=== PATIENT | female | born 1960 | race Two or more races ===

== ENCOUNTER 2024-07-09 11:17 | Inpatient (IN) | payer MEDICAID, OTHER ==
[~2024-07-09] VITALS: Ht 154.9 cm; Wt 99.0 kg
--- NOTE | 2024-07-09 11:38 | ED.PDOC ---
Musculoskeletal HPI Comments 63 y/o F, BIBA, with PMHx of hyperthyroidism, HTN, and DM presents to the ED for CC of s/p fall. EMS reports, patient is coming from home where she suffered a fall off a chair following nailing a object into the wall. EMS states, patient reportedly felt dizzy and decided to step down from the chair, twisting her right ankle and breaking her fall with her right wrist. Following trauma patient complains of head pain, right wrist and right ankle pain. In route, to the ED patient was given Tylenol IV; reports current 6/10 pain. Patient denies LOC, head injury, open abrasions, nausea, or vomiting. No other symptoms or modifying factors present at this time. Chief Complaint: Fall Injury Time Seen by MD: 11:20 Reviewed Notes: Nurses Notes, Medications, Allergies Allergies: Coded Allergies: NO KNOWN ALLERGIES (Unverified , 07/09/24) Home Meds Reported Medications Levothyroxine Sodium (Levothyroxine Sodium) 25 Mcg Tab, 25 MCG PO QAM, MCG 07/09/24 Atorvastatin Calcium (Lipitor) 40 Mg Tab, 40 MG PO, TAB 07/09/24 Semaglutide (Ozempic) 2 Mg/3 Ml Inj, 2 MG SC, INJ 07/09/24 Information Source: Patient, Emergency Med Personnel Mode of Arrival: EMS Location: Right Extremity Location: Ankle, Wrist Timing: Minutes Prehospital treatment: Other (tylenol) Severity: Moderate Able to Move Extremity: Yes Bear Weight: Limited Pain: Moderate Mechanism: None Circumstances: Fall Onset of Symptoms: After Trauma Symptoms: Swelling, Pain DVT Risk Factors: NONE Last Tetanus: Unknown Associated signs and symptoms: Wrist pain, Ankle pain Past Medical History PAST MEDICAL HISTORY: Denies Surgical History: Denies all surgeries COATER SLATE History: Denies all COATER SLATE Hx Family History Family History: Unknown Social History Smoker: Non-Smoker Alcohol: Occasionally Drugs: Denies Drug Use Lives In: Home Constitutional: denies: chills, diaphoresis, fatigue, fever, malaise, sweats, weakness, others EENTM: denies: blurred vision, double vision, ear bleeding, ear discharge, ear drainage, ear pain, ear ringing, eye pain, eye redness, hearing loss, mouth pain, mouth swelling, nasal discharge, nose bleeding, nose congestion, nose pain, photophobia, tearing, throat pain, throat swelling, voice changes, others Respiratory: denies: cough, hemoptysis, orthopnea, SOB at rest, shortness of breath, SOB with excertion, stridor, wheezing, others Cardiovascular: denies: chest pain, dizzy spells, diaphoresis, Dyspnea on exertion, edema, irregular heart beat, left arm pain, lightheadedness, palpitations, PND, syncope, others Gastrointestinal: denies: abdomen distended, abdominal pain, blood streaked bowels, constipated, diarrhea, dysphagia, difficulty swallowing, hematemesis, melena, nausea, poor appetite, poor fluid intake, rectal bleeding, rectal pain, vomiting, others Genitourinary: denies: abnormal vagina bleeding, burning, dyspareunia, dysuria, flank pain, frequency, hematuria, incontinence, pain, , vagina discharge, urgency, others Neurological: reports: dizziness, headache; denies: fainting, left sided numbness, left sided weakness, numbness, paresthesia, pre-existing deficit, right sided numbness, right sided weakness, seizure, speech problems, tingling, tremors, weakness, others Musculoskeletal: reports: others (right wrist pain, right ankle pain); denies: back pain, gout, joint pain, joint swelling, muscle pain, muscle stiffness, neck pain Integumetry: denies: bruises, change in color, change in hair/nails, dryness, laceration, lesions, lumps, rash, wounds, others Allergic/Immunocompromised: denies: Difficulty Healing, Frequent Infections, Hives, Itching, others Hematologic/Lymphatic: denies: anemia, blood clots, easy bleeding, easy bruising, swollen glands, others Endocrine: denies: excessive hunger, excessive sweating, excessive thirst, excessive urination, flushing, intolerance to cold, intolerance to heat, unexplained weight gain, unexplained weight loss, others Psychiatric: denies: anxiety, bipolar disorder, depression, hopeless, panic d isorder, schizophrenia, sleepless, suicidal, others All Other Systems: Reviewed and Negative Physical Exam General Appearance: No Apparent Distress, Normal HEENT: Normal ENT Inspection, Pharynx Normal, TMs Normal Neck: Full Range of Motion, Non-Tender, Normal, Normal Inspection Respiratory: Chest Non-Tender, Lungs Clear, No Accessory Muscle Use, No Respiratory Distress, Normal Breath Sounds Cardiovascular: No Edema, No JVD, No Murmur, No Gallop, Normal Peripheral Pulses, Regular Rate/Rhythm Breast Exam: Deferred Gastrointestinal: No Organomegaly, Non Tender, No Pulsatile Mass, Normal Bowel Sounds, Soft Genitalia: Deferred Pelvic: Deferred Rectal: Deferred Extremities: No calf tenderness, Normal capillary refill, Normal range of motion, No pedal edema Musculoskeletal : Location: Right Extremity Location: Ankle, Wrist Apperance: Swelling, Tenderness Neurologic: Alert, supervisor orchard II-XII nml as Tested, No Motor Deficits, Normal Affect, Normal Mood, No Sensory Deficits Cerebellar Function: Normal Reflexes: Normal Skin: Dry, Normal Color, Warm Lymphatic: No Adenopathy Was a procedure done? Was a procedure done?: Yes Sedation Sedation?: No Informed consent obtained: Yes Other Procedure Procedure right short arm volar splint and right posterior short leg/ stirrup splint well placed, intact neurovascular functions Differential Diagnosis EXT Differential Diagnosis: Fracture, Sprain, Dislocation, Myocardial Infarction, Contusion, Strain, Neurovascular injury, Other (vasovagal syncope, shaw marcum syncope/near syncope, electrolyte disorders, hypoglycemia, hypotensions) X-Ray, Labs, Meds, VS Vital Signs Date Time Temp Pulse Resp B/P (MAP) Pulse Ox O2 Delivery O2 Flow Rate FiO2 07/09/24 13:53 97.9 73 18 148/79 (102) 100 97.9 07/09/24 13:53 73 18 100 Room Air 07/09/24 11:28 98.2 73 18 120/83 (95) 97 98.2 Lab Test 07/09/24 12:40 07/09/24 11:37 Range/Units Troponin I High Sensitivity < 3 L < 3 L </=34 ng/L White Blood Count 4.6 4.4-10.8 10^3/uL Red Blood Count 5.16 4.0-5.20 10^6/uL Hemoglobin 14.6 12.2-16.2 g/dL Hematocrit 43.6 36.0-46.0 % Mean Corpuscular Volume 84.7 80.0-100.0 fL Mean Corpuscular Hemoglobin 28.3 28.0-32.0 pg Mean Corpuscular Hemoglobin Concent 33.4 32.0-36.0 g/dL Red Cell Distribution Width 15.2 H 11.8-14.3 % Platelet Count 176 140-450 10^3/uL Mean Platelet Volume 8.0 6.9-10.8 fL Neutrophils (%) (Auto) 62.4 37.0-80.0 % Lymphocytes (%) (Auto) 27.1 10.0-50.0 % Monocytes (%) (Auto) 8.5 0.0-12.0 % Eosinophils (%) (Auto) 1.7 0.0-7.0 % Basophils (%) (Auto) 0.3 0.0-2.0 % Neutrophils # (Auto) 2.9 1.6-8.6 10 ^3/uL Lymphocytes # (Auto) 1.3 0.4-5.4 10 ^3/uL Monocytes # (Auto) 0.4 0-1.3 10 ^3/uL Eosinophils # (Auto) 0.1 0-0.8 10 ^3/uL Basophils # (Auto) 0 0-0.2 10 ^3/uL Nucleated Red Blood Cells 0.2 % Sodium Level 142 136-145 mmol/L Potassium Level 4.1 3.5-5.1 mmol/L Chloride Level 105 98-107 mmol/L Carbon Dioxide Level 30 20-31 mmol/L Anion Gap 7 5-15 Blood Urea Nitrogen 19 9-23 mg/dL Creatinine 0.63 0.550-1.02 mg/dL Glomerular Filtration Rate Calc 100 >90 mL/min BUN/Creatinine Ratio 30.2 H 10.0-20.0 Serum Glucose 125 H 74-106 mg/dL Calcium Level 8.7 8.7-10.4 mg/dL Current Medications Medications (Trade) Dose Ordered Sig/Esmer Route Start Time Stop Time Status Last Admin Acetaminophen/ Hydrocodone Bitart ([place] 5/325MG Tab) 1 tab ONCE ONCE PO 07/09/24 11:30 07/09/24 11:33 DC 07/09/24 13:53 [place] [address] Ph: [phone] DIAGNOSTIC IMAGING Diagnostic Imaging Report : [id number] Signed PATIENT: IMAN LIANG ACCT: [id number] UNIT: [id number] : 1960 LOC: ER ROOM / BED: / AGE / SEX: 63 / F ADM STATUS: REG ER SERVICE 1137 ORDERING PHYSICIAN: CANDIS CRAVEN MD PROCEDURE(s): RWRI2 - R WRIST 2 VIEW XRAY REASON: injury ORDER NUMBER(s): [id number], ACCESSION NUMBER(s): [id number] XY R WRIST 2 VIEW XRAY, INDICATION: injury TECHNICAL DATA: Frontal and lateral views were obtained of the right wrist. COMPARISON: None FINDINGS: Comminuted and displaced fracture of the distal radius and ulna. Joint spaces are maintained. Alignment is anatomic. Ulnar variance is positive. Soft tissues are within normal limits. IMPRESSION: Comminuted and displaced fracture of the distal radius and ulna. ATED BY: GILBERTO RECINOS MD DICTATED DATE/TIME: 07/09/241244 SIGNED BY: GILBERTO RECINOS MD SIGNED DATE/TIME: 07/09/241244 CC: [place] [address] Ph: [phone] DIAGNOSTIC IMAGING Diagnostic Imaging Report : [id number] Signed PATIENT: IMAN LIANG ACCT: [id number] UNIT: [id number] : 1960 LOC: ER ROOM / BED: / AGE / SEX: 63 / F ADM STATUS: REG ER SERVICE 1137 ORDERING PHYSICIAN: CANDIS CRAVEN MD PROCEDURE(s): RANKL - R ANKLE 3 VIEW REASON: injury ORDER NUMBER(s): [id number], ACCESSION NUMBER(s): [id number] PROCEDURE: Right ankle radiographs. INDICATION: Injury. TECHNIQUE: 3 views of the right ankle were obtained. COMPARISON: None FINDINGS: There is fracture of the distal fibula and medial malleolus. The ankle mortise is not widened. There soft tissue swelling in the ankle. IMPRESSION: 1. Fracture of the distal fibula and medial malleolus. 2. Soft tissue swelling of the ankle. ATED BY: MITCHELL ESCUDERO MD DICTATED DATE/TIME: 07/09/244 SIGNED BY: MITCHELL ESCUDERO MD SIGNED DATE/TIME: 07/09/24 122 CC: [place] [id number] Ph: [phone] DIAGNOSTIC IMAGING Diagnostic Imaging Report : [id number] Signed PATIENT: IMAN LIANG ACCT: [id number] UNIT: [id number] : 1960 LOC: ER ROOM / BED: / AGE / SEX: 63 / F ADM STATUS: REG ER SERVICE 113 ORDERING PHYSICIAN: CANDIS CRAVEN MD PROCEDURE(s): RTBFB - R TIB FIB XRAY REASON: injury ORDER NUMBER(s): [id number], ACCESSION NUMBER(s): [id number] PROCEDURE: Right tibia/ fibula radiographs. INDICATION: injury TECHNIQUE: 2 views of the right tibia/ fibula were obtained. COMPARISON: None FINDINGS: There is an acute fracture of the distal fibula. Acute fracture of the posterior and medial malleolus. The ankle mortise is not widened. Soft tissue swelling in the ankle. IMPRESSION: 1. Acute trimalleolar fracture. No dislocation. ATED BY: MITCHELL ESCUDERO MD DICTATED DATE/TIME: 07/09/241224 SIGNED BY: MITCHELL ESCUDERO MD SIGNED DATE/TIME: 07/09/241224 CC: [place] [address] Ph: [phone] DIAGNOSTIC IMAGING Diagnostic Imaging Report : [id number] Signed PATIENT: IMAN LIANG ACCT: [id number] UNIT: [id number] : 1960 LOC: ER ROOM / BED: / AGE / SEX: 63 / F ADM STATUS: REG ER SERVICE 1137 ORDERING PHYSICIAN: CANDIS CRAVEN MD PROCEDURE(s): RFOR - R FOREARM XRAY REASON: injury ORDER NUMBER(s): [id number], ACCESSION NUMBER(s): [id number] XY R FOREARM XRAY, INDICATION: injury TECHNICAL DATA: Frontal and lateral views were obtained of the left forearm. COMPARISON: None FINDINGS: Comminuted and displaced fracture of the distal radius and ulna. Soft tissues are normal. IMPRESSION: Comminuted and displaced fracture of the distal radius and ulna. ATED BY: GILBERTO RECINOS MD DICTATED DATE/TIME: 07/09/241244 SIGNED BY: GILBERTO RECINOS MD SIGNED DATE/TIME: 07/09/241244 CC: [place] [address] Ph: [phone] DIAGNOSTIC IMAGING Diagnostic Imaging Report : [id number] Signed PATIENT: IMAN LIANG ACCT: [id number] UNIT: [id number] : 1960 LOC: ER ROOM / BED: / AGE / SEX: 63 / F ADM STATUS: REG ER SERVICE 1134 ORDERING PHYSICIAN: CANDIS CRAVEN MD PROCEDURE(s): HWOCT - HEAD WITHOUT CONTRAST REASON: injury, near syncope ORDER NUMBER(s): [id number], ACCESSION NUMBER(s): [id number] EXAM: CT HEAD WITHOUT CONTRAST INDICATION: injury, near syncope TECHNIQUE: CT of the head without intravenous contrast. Radiation Dose : 1. Head: CT Dose: CTDI volume is 51.09 mGy. Dose-length product is 819.18 mGy*cm The dose indicators for CT are the volume Computed Tomography (CT) Dose Index (CTDIvol) and the Dose Length Product (DLP), and are measured in units of mGy and mGy-cm, respectively. These indicators are not patient dose, but values generated from the CT scanner acquisition factors. The report includes radiation exposure data for exposures received during this examination. COMPARISON: None FINDINGS: There is no evidence of acute intracranial hemorrhage, extra-axial collection, mass effect, midline shift, herniation or hydrocephalus. The ventricles, sulci and cisterns are age appropriate. The powell-white differentiation is intact. Patchy periventricular and subcortical white matter hypoattenuation is nonspecific but may be related to small vessel ischemic disease. The visualized paranasal sinuses and mastoid air cells are clear. The surrounding soft tissues and osseous structures are unremarkable. IMPRESSION: 1. No acute intracranial abnormality. Radiation optimization: All CT scans at this facility use at least one of these dose optimization techniques: automated exposure control mA and/or kV adjustment per patient size (includes targeted exams where dose is matched to clinical indication) or iterative reconstruction. ATED BY: STANISLAV LYMAN MD DICTATED DATE/TIME: 07/09/241243 SIGNED BY: STANISLAV LYMAN MD SIGNED DATE/TIME: 07/09/241243 CC: [place] [address] Ph: [phone] DIAGNOSTIC IMAGING Diagnostic Imaging Report : [id number] Signed PATIENT: IMAN LIANG ACCT: [id number] UNIT: [id number] : 1960 LOC: ER ROOM / BED: / AGE / SEX: 63 / F ADM STATUS: REG ER SERVICE 113 ORDERING PHYSICIAN: CANDIS CRAVEN MD PROCEDURE(s): CERV2 - CERVICAL SPINE 3V REASON: injury ORDER NUMBER(s): [id number], ACCESSION NUMBER(s): [id number] XY CERVICAL SPINE 3V INDICATION: injury TECHNICAL DATA: The following views were obtained of the cervical spine: Frontal, lateral, open mouth . COMPARISON: None FINDINGS: C1-7 are visualized on the lateral view for evaluation of alignment. Cervical curvature is normal. There is no spondylolisthesis. Vertebral body heights are maintained. Disk heights are narrow. The facet joints appear degenerative. The dens and predental space demonstrate no abnormality. The C1-C2 articulation appears normal. Prevertebral soft tissues are within normal limits. IMPRESSION: No acute fracture or dislocation of the cervical spine. ATED BY: GILBERTO RECINOS MD DICTATED DATE/TIME: 07/09/241242 SIGNED BY: GILBERTO RECINOS MD SIGNED DATE/TIME: 07/09/241242 CC: [place] [address] Ph: [phone] DIAGNOSTIC IMAGING Diagnostic Imaging Report : [id number] Signed PATIENT: IMAN LIANG ACCT: [id number] UNIT: [id number] : 1960 LOC: ER ROOM / BED: / AGE / SEX: 63 / F ADM STATUS: REG ER SERVICE 1136 ORDERING PHYSICIAN: CANDIS CRAVEN MD PROCEDURE(s): CXRP - CHEST PORTABLE REASON: near syncope ORDER NUMBER(s): [id number], ACCESSION NUMBER(s): [id number] XY CHEST PORTABLE, HISTORY: near syncope COMPARISON: None None TECHNICAL DATA: 1 view of the chest was obtained. FINDINGS: Lines and tubes: None Cardiomediastinal silhouette: Enlarged Pulmonary vasculature: Prominent Lung expansion: normal Lung airspace: normal Lung interstitium: normal Pleura: normal Pneumothorax: no Bones: Unremarkable Other: no IMPRESSION: Cardiomegaly with pulmonary vascular congestion. ATED BY: GILBERTO RECINOS MD DICTATED DATE/TIME: 07/09/241244 SIGNED BY: GILBERTO RECINOS MD SIGNED DATE/TIME: 07/09/241244 CC: Time of 1ST Reevaluation: 11:50 Reevaluation 1ST: Unchanged Time of 2ND Reevaluation: 13:37 Reevaluation 2ND: Improved Patient Education/Counseling: Diagnosis, Treatment, Prognosis, Need For Follow Up Family Education/Counseling: Diagnosis, Treatment, Prognosis, Need For Follow Up, No Family Present Additional Information The following tests were ordered, and results were reviewed by me: CBC, BMP, TROPONIN X3, EKG X3, RIGHT WRIST XR, RIGHT ANKLE XR, RIGHT TIB FIB XR, RIGHT FOREARM XR, HEAD CT, CERVICAL SPINE XR, CXR Additional Information was gathered from interviewing the following independent historians: EMS I reviewed and agreed with the following test results read by other providers: RIGHT WRIST XR, RIGHT ANKLE XR, RIGHT TIB FIB XR, RIGHT FOREARM XR, HEAD CT, CERVICAL SPINE XR, CXR I discussed treatment and results with medical personnel and: patient Comprehensive systems review obtained and negative except for what is stated in the HPI. Departure 1 Departure Time of Disposition: 13:38 Impression: Primary Impression: Near syncope Additional Impressions: Wrist fracture Qualified Codes: S62.101A - Fracture of unspecified carpal bone, right wrist, initial encounter for closed fracture Ankle fracture Qualified Codes: S82.891A - Other fracture of right lower leg, initial encounter for closed fracture Falling Disposition: 09 ADMITTED INPATIENT Admit to: Tele Condition: Serious Discharged With: Self, Relative Critical Care Note Critical Care Time?: Yes (45 min-critical care time only) Critical care comment: Due to concerns for patients condition deteriorating, the care required my highest level of attention and readiness to intervene. I assessed the patient, reviewed the medical records, ordered the appropriate tests and treatments, then reassessed for results and responsiveness. I communicated with medical personnel and consultants and formulated a plan of care. Total critical care time excludes any procedures Stability Stability form required: No Heart Score Heart Score: Heart Score Response (Comments) Value History N/A 0 EKG N/A 0 Age N/A 0 Risk Factors N/A 0 Troponin N/A 0 Total 0 I personally scribed for CANDIS CRAVEN MD [email or web address]) on 07/09/24 at 11:38. Electronically submitted by Meagan Jackson ([email or web address]). I personally scribed for CANDIS CRAVEN MD ([email or web address]) on 07/09/24 at 11:54. Electronically submitted by Meagan Jackson ([email or web address]). I personally scribed for CANDIS CRAVEN MD ([email or web address]) on 07/09/24 at 13:02. Electronically submitted by Meagan Jackson ([email or web address]). CANDIS CRAVEN MD July 09, 2024 11:38
[2024-07-09 12:02] LABS: Basophils # (auto) 0 10 ^3/uL (0-0.2); Basophils % (auto) 0.3 % (0.0-2.0); Eosinophils # (auto) 0.1 10 ^3/uL (0-0.8); Eosinophils % (auto) 1.7 % (0.0-7.0); Hematocrit 43.6 % (36.0-46.0); Hemoglobin 14.6 g/dL (12.2-16.2); Lymphocytes # (auto) 1.3 10 ^3/uL (0.4-5.4); Lymphocytes % (auto) 27.1 % (10.0-50.0); Mean Corpuscular Hemoglobin 28.3 pg (28.0-32.0); Mean Corpuscular Hgb Conc. 33.4 g/dL (32.0-36.0); Mean Corpuscular Volume 84.7 fL (80.0-100.0); Monocytes # (auto) 0.4 10 ^3/uL (0-1.3); Monocytes % (auto) 8.5 % (0.0-12.0); Neutrophils # (auto) 2.9 10 ^3/uL (1.6-8.6); Neutrophils % (auto) 62.4 % (37.0-80.0); Nucleated Red Blood Cells % 0.2 %; Platelet Count (auto) 176 10^3/uL (140-450); Red Blood Cells 5.16 10^6/uL (4.0-5.20); Red Cell Distribution Width 15.2 % (11.8-14.3); White Blood Cell 4.6 10^3/uL (4.4-10.8)
[2024-07-09 12:13] LABS: Chloride 105 mmol/L (98-107); Potassium 4.1 mmol/L (3.5-5.1); Sodium 142 mmol/L (136-145)
[2024-07-09 12:14] LABS: Anion Gap 7 (5-15); Calcium 8.7 mg/dL (8.7-10.4); Carbon Dioxide 30 mmol/L (20-31)
[2024-07-09 12:19] LABS: BUN/Creatinine Ratio 30.2 (10.0-20.0); Blood Urea Nitrogen 19 mg/dL (9-23)
[2024-07-09 12:20] LABS: Glucose 125 mg/dL (74-106)
--- NOTE | 2024-07-09 12:27 | DVH ---
PROCEDURE: Right ankle radiographs. INDICATION: Injury. TECHNIQUE: 3 views of the right ankle were obtained. COMPARISON: None FINDINGS: There is fracture of the distal fibula and medial malleolus. The ankle mortise is not wide [place]. There soft tissue swelling in the ankle. IMPRESSION: 1. Fracture of the distal fibula and medial malleolus. 2. Soft tissue swelling of the ankle.
--- NOTE | 2024-07-09 12:27 | DVH ---
PROCEDURE: Right tibia/ fibula radiographs. INDICATION: injury TECHNIQUE: 2 views of the right tibia/ fibula were obtained. COMPARISON: None FINDINGS: There is an acute fracture of the distal fibula. Acute fracture of the posterior and medial malleolus. The ankle mortise is not widened. Soft tissue swelling in the ankle. IMPRESSION: 1. Acute trimalleolar fracture. No dislocation.
--- NOTE | 2024-07-09 12:45 | DVH ---
XY CERVICAL SPINE 3V INDICATION: injury TECHNICAL DATA: The following views were obtained of the cervical spine: Frontal, lateral, open mouth . COMPARISON: None FINDINGS: C1-7 are visualized on the lateral view for evaluation of alignment. Cervical curvature is normal. Th ere is no spondylolisthesis. Vertebral body heights are maintained. Disk heights are narrow. The face t joints appear degenerative. The dens and predental space demonstrate no abnormality. The C1-C2 rito culation appears normal. Prevertebral soft tissues are within normal limits. IMPRESSION: No acute fracture or dislocation of the cervical spine.
--- NOTE | 2024-07-09 12:47 | DVH ---
EXAM: CT HEAD WITHOUT CONTRAST INDICATION: injury, near syncope TECHNIQUE: CT of the head without intravenous contrast. Radiation Dose : 1. Head: CT Dose: CTDI volume is 51.09 mGy. Dose-length product is 819.18 mGy*cm The dose indicators for CT are the volume Computed Tomography (CT) Dose Index (CTDIvol) and the Dose Length Product (DLP), and are measured in units of mGy and mGy-cm, respectively. These indicators are not patient dose, but values generated from the CT scanner acquisition factors. The report includes radiation exposure data for exposures received during this examination. COMPARISON: None FINDINGS: There is no evidence of acute intracranial hemorrhage, extra-axial collection, mass effect, midline s hift, herniation or hydrocephalus. The ventricles, sulci and cisterns are age appropriate. The powell-white differentiation is intact. Patchy periventricular and subcortical white matter hypoattenuation is nonspecific but may be related to small vessel ischemic disease. The visualized paranasal sinuses and mastoid air cells are clear. The surrounding soft tissues and osseous structures are unremarkable. IMPRESSION: 1. No acute intracranial abnormality. Radiation optimization: All CT scans at this facility use at least one of these dose optimization analilia hniques: automated exposure control mA and/or kV adjustment per patient size (includes targeted exam s where dose is matched to clinical indication) or iterative reconstruction.
--- NOTE | 2024-07-09 12:47 | DVH ---
XY R FOREARM XRAY, INDICATION: injury TECHNICAL DATA: Frontal and lateral views were obtained of the left forearm. COMPARISON: None FINDINGS: Comminuted and displaced fracture of the distal radius and ulna. Soft tissues are normal. IMPRESSION: Comminuted and displaced fracture of the distal radius and ulna.
--- NOTE | 2024-07-09 12:47 | DVH ---
XY CHEST PORTABLE, HISTORY: near syncope COMPARISON: None None TECHNICAL DATA: 1 view of the chest was obtained. FINDINGS: Lines and tubes: None Cardiomediastinal silhouette: Enlarged Pulmonary vasculature: Prominent Lung expansion: normal Lung airspace: normal Lung interstitium: normal Pleura: normal Pneumothorax: no Bones: Unremarkable Other: no IMPRESSION: Cardiomegaly with pulmonary vascular congestion.
--- NOTE | 2024-07-09 12:48 | DVH ---
XY R WRIST 2 VIEW XRAY, INDICATION: injury TECHNICAL DATA: Frontal and lateral views were obtained of the right wrist. COMPARISON: None FINDINGS: Comminuted and displaced fracture of the distal radius and ulna. Joint spaces are maintained. Alignme nt is anatomic. Ulnar variance is positive. Soft tissues are within normal limits. IMPRESSION: Comminuted and displaced fracture of the distal radius and ulna.
[2024-07-09] MEDS: HYDROcodone-ACET 5/325MG TAB PO ONE (13:53)
[2024-07-09] MEDS ORDERED: ONDANSETRON HCL 4 MG/2 ML VIAL IV PRN (14:15)
--- NOTE | 2024-07-09 14:28 | DVHHP2 ---
Admitting Diagnosis: Fall History of Present Illness 63 y/o F, BIBA, with PMHx of hyperthyroidism, HTN, and DM presents to the ED for CC of s/p fall. EMS reports, patient is coming from home where she suffered a f all off a chair following nailing a object into the wall. EMS states, patient reportedly felt dizzy and decided to step down from the chair, twisting her right ankle and breaking her fall with her right wrist. Following trauma patient complains of head pain, right wrist and right ankle pain. In route, to the ED patient was given Tylenol IV; reports current 6/10 pain. Patient denies LOC, head injury, open abrasions, nausea, or vomiting. No other symptoms or modifying factors present at this time. Past Medical History PAST MEDICAL HISTORY: Denies Surgical History: Denies all surgeries PHYSICIAN RELATIONS REPRESENTATIVE History: Denies all PHYSICIAN RELATIONS REPRESENTATIVE Hx Family History Family History: Unknown Social History Smoker: Non-Smoker Alcohol: Occasionally Drugs: Denies Drug Use Lives In: Home Allergies: Coded Allergies: NO KNOWN ALLERGIES (Unverified , 07/09/24) Vital Signs Vital Signs Date Time Temp Pulse Resp B/P (MAP) Pulse Ox O2 Delivery O2 Flow Rate FiO2 07/09/24 11:28 98.2 73 18 120/83 (95) 97 98.2 Physical Exam Generally 63 years old woman, overweight, sitting on wheelchair. Mild distress HEENT-atraumatic, normocephalic Heart-regular rate and rhythm Lungs clear to auscultate Abdomen soft nontender nondistended Musculoskeletal-edema at right wrist. Tender to palpate no erythema. Edema and ecchymosis on right medial ankle region. Tender to palpate Neuro-strength and sensory intact AO x3 Results Labs Test 07/09/24 12:40 07/09/24 11:37 Range/Units Troponin I High Sensitivity < 3 L </=34 ng/L White Blood Count 4.6 4.4-10.8 10^3/uL Red Blood Count 5.16 4.0-5.20 10^6/uL Hemoglobin 14.6 12.2-16.2 g/dL Hematocrit 43.6 36.0-46.0 % Mean Corpuscular Volume 84.7 80.0-100.0 fL Mean Corpuscular Hemoglobin 28.3 28.0-32.0 pg Mean Corpuscular Hemoglobin Concent 33.4 32.0-36.0 g/dL Red Cell Distribution Width 15.2 H 11.8-14.3 % Platelet Count 176 140-450 10^3/uL Mean Platelet Volume 8.0 6.9-10.8 fL Neutrophils (%) (Auto) 62.4 37.0-80.0 % Lymphocytes (%) (Auto) 27.1 10.0-50.0 % Monocytes (%) (Auto) 8.5 0.0-12.0 % Eosinophils (%) (Auto) 1.7 0.0-7.0 % Basophils (%) (Auto) 0.3 0.0-2.0 % Neutrophils # (Auto) 2.9 1.6-8.6 10 ^3/uL Lymphocytes # (Auto) 1.3 0.4-5.4 10 ^3/uL Monocytes # (Auto) 0.4 0-1.3 10 ^3/uL Eosinophils # (Auto) 0.1 0-0.8 10 ^3/uL Basophils # (Auto) 0 0-0.2 10 ^3/uL Nucleated Red Blood Cells 0.2 % Sodium Level 142 136-145 mmol/L Potassium Level 4.1 3.5-5.1 mmol/L Chloride Level 105 98-107 mmol/L Carbon Dioxide Level 30 20-31 mmol/L Anion Gap 7 5-15 Blood Urea Nitrogen 19 9-23 mg/dL Creatinine 0.63 0.550-1.02 mg/dL Glomerular Filtration Rate Calc 100 >90 mL/min BUN/Creatinine Ratio 30.2 H 10.0-20.0 Serum Glucose 125 H 74-106 mg/dL Calcium Level 8.7 8.7-10.4 mg/dL Primary Diagnosis Fall Near-syncope Comminuted and displaced fracture of the distal radius and ulna. Acute trimalleolar fracture. Plan CT head negative for acute intracranial hemorrhage T cervical spine negative for fracture IV fluids Check echo of the heart Check carotid Doppler Check orthostatic vitals Pain control Orthopedic consult for fracture of distal radius and ulna and trimalleolar fracture SCD on left lower extremity No GI prophylaxis needed NPO after midnight Full code Plan discussed with: Patient Date of Service: July 09, 2024 Billing Provider: EMEKA BURTON MD Common Visit Codes: [id number] INP/OBS CARE (MOD) EMEKA BURTON MD July 09, 2024 14:28
--- NOTE | 2024-07-09 15:29 | DVH ---
Carotid Duplex Date: 07/09/2024 02:47 PM Clinical History: near syncope Comparison: None Technique: Duplex Doppler evaluation of the extracranial carotid and vertebral arteries including col or Doppler and spectral/pulsed waveform analysis was performed. Findings: RIGHT SIDE: The peak systolic velocities are T2 cm/s in the distal CCA and 103 cm/s in the proximal ICA.The ICA/C CA ratio is less than 2. The external carotid artery is patent with peak systolic velocity of 99.1 cm/s proximally. There is appropriate antegrade flow in the right vertebral artery., 23.4 cm/s. LEFT SIDE: The peak systolic velocities are 62.5 cm/s in the distal CCA and 63 cm/s in the proximal ICA.. The IC A/CCA ratio is less than 2. The external carotid artery is patent with peak systolic velocity of 96.5 cm/s proximally. There is appropriate antegrade flow in the left vertebral artery, 39.5 cm/s. IMPRESSION: 1. No hemodynamically significant stenosis noted in the right carotid system. 2. No hemodynamically significant stenosis noted in the left carotid system. 3. Reference: Radiology 2003; [id number] HS:Y
[2024-07-09 15:42] VITALS: BP 120/83; PULSE 73; RESP 18; TEMP 98.2; O2SAT 97
[2024-07-09] MEDS: LACTATED RINGER'S 1,000 ML IV ONE (16:00)
[2024-07-09] MEDS ORDERED: LEVO25TA6 PO (16:44)
[2024-07-09] MEDS ORDERED: SEMA2INJ3 SC (16:44)
[2024-07-09] MEDS ORDERED: ATOR-507 PO (16:44)
[2024-07-09] MEDS: HYDROmorphone HCL 2 MG/ML VL/or syr IV PRN (18:54)
[2024-07-09 20:18] VITALS: BP 159/79; PULSE 77; RESP 18; TEMP 98.9; O2SAT 96
[2024-07-09 20:30] VITALS: RESP 18
[2024-07-09 20:31] LABS: INR 0.97 (0.9-1.15); Prothrombin Time 10.3 sec (9.3-11.8)
[2024-07-09] MEDS: SODIUM CHLOR 0.9% PF (SALINE LOCK) 10ML VIAL/SYR IV SCH (21:53)
[2024-07-10 00:50] VITALS: BP 158/68; PULSE 82; RESP 18; TEMP 98.2; O2SAT 94
[2024-07-10] MEDS: HYDROcodone-ACET 5/325MG TAB PO PRN (02:54)
[2024-07-10 04:34] VITALS: BP 137/72; PULSE 97; RESP 17; TEMP 97.2; O2SAT 92
[2024-07-10 07:19] LABS: Basophils # (auto) 0 10 ^3/uL (0-0.2); Basophils % (auto) 0.3 % (0.0-2.0); Eosinophils # (auto) 0.1 10 ^3/uL (0-0.8); Eosinophils % (auto) 1.6 % (0.0-7.0); Hematocrit 41.2 % (36.0-46.0); Hemoglobin 13.8 g/dL (12.2-16.2); Lymphocytes # (auto) 0.8 10 ^3/uL (0.4-5.4); Mean Corpuscular Hemoglobin 28.6 pg (28.0-32.0); Mean Corpuscular Hgb Conc. 33.6 g/dL (32.0-36.0); Mean Corpuscular Volume 84.9 fL (80.0-100.0); Monocytes # (auto) 0.4 10 ^3/uL (0-1.3); Monocytes % (auto) 7.4 % (0.0-12.0); Neutrophils # (auto) 4.5 10 ^3/uL (1.6-8.6); Neutrophils % (auto) 77.7 % (37.0-80.0); Nucleated Red Blood Cells % 0.1 %; Platelet Count (auto) 168 10^3/uL (140-450); Red Blood Cells 4.85 10^6/uL (4.0-5.20); Red Cell Distribution Width 15.3 % (11.8-14.3); White Blood Cell 5.8 10^3/uL (4.4-10.8)
[2024-07-10 07:44] LABS: Anion Gap 9 (5-15); BUN/Creatinine Ratio 28.9 (10.0-20.0); Blood Urea Nitrogen 13 mg/dL (9-23); Carbon Dioxide 25 mmol/L (20-31); Chloride 105 mmol/L (98-107); Sodium 139 mmol/L (136-145); Total Protein 6.1 g/dL (5.7-8.2)
[2024-07-10 07:45] LABS: Albumin 3.6 g/dL (3.2-4.8); Bilirubin, Total 0.9 mg/dL (0.2-1.0)
[2024-07-10 07:48] LABS: Alanine Aminotransferase 237 U/L (7-40); Alkaline Phosphatase 118 U/L (46-116); Aspartate Aminotransferase 150 U/L (13-40); Calcium 8.6 mg/dL (8.7-10.4); Glucose 122 mg/dL (74-106)
[2024-07-10] MEDS: ACETAMINOPHEN 325 MG TAB PO PRN (08:39)
[2024-07-10 08:46] VITALS: BP 143/66; PULSE 87; RESP 20; TEMP 99.3; O2SAT 93
[2024-07-10 12:40] VITALS: BP 142/81; PULSE 108; RESP 18; TEMP 99.9; O2SAT 80
--- NOTE | 2024-07-10 13:11 | DVHSR ---
APPROVED REPORT EXAM: Two-dimensional and M-mode echocardiogram with Doppler and color Doppler. Blood Pressure: 137/72 mmHg INDICATION Near syncope RISK FACTORS Obesity: Height: 5'1", Weight: 200 DIMENSIONS LVDd3.7 (3.8-5.7cm)LA (2D)3.4 (1.9-4.0cm)Aortic Root3.3 (2.0-3.7cm) LVDs2.6 (2.5-4.0cm)LA (MM) (1.9-4.0cm)Aortic Cusp Exc2.0 (1.5-2.0cm) EF (%) 60.0 (55-70%)Rt. Atrium5.6 (1.9-4.0cm)Asc. Aorta cm IVSd1.2 (0.7-1.1cm)RV (D)4.8 (1.8-2.4cm) PWd1.0 (0.7-1.1cm) Mitral Valve MitralMitral Stenosis E wave0.60m/sMV Mean GR.mmHg A wave0.83m/sMV Peak GR.mmHg E/A ratio0.72D MVAcm2 DECEL [id number] 1/2 Tim[place] Aortic Valve Aortic ValveAortic Stenosis V11.25m/Nirav Mean GR.5mmHg V21.58m/Nirav Peak GR.10mmHg LVOT Diameter2.1 (1.8-2.4cm)Doppler AVA2.74cm2 Pulmonic Valve V21.25m/s Tricuspid Valve TR Velocity3.69m/s [id number] Other Information Technically limited study due to body habitus, patient lying flat. Conclusion Left ventricle: Left ventricle was normal size with normal systolic function. LVEF was 60%. There w as no gross wall motion abnormality. Right ventricle was dilated with preserved systolic function. The atrium was normal size. Right atr ium was dilated. Aortic valve was trileaflet. There was no aortic insufficiency/stenosis. There was trivial mitral r egurgitation. There was moderate tricuspid regurgitation. There was mild pulmonary valve insufficie ncy. Right ventricular systolic pressure was assessed that 62 mm Hg. IVC had reduced respiratory variatio n. There was no pericardial effusion Compatible with pulmonary hypertension.
--- NOTE | 2024-07-10 13:27 | DVHINCON2 ---
Date of service: July 09, 2024 Reason for Consultation Right distal radius and ankle fracture History of Present Illness 63 yo F sp mechanical fall when she felt dizzy and fell onto right side. Immediate pain/swelling/inability to bear weight on right ankle and wrist. No current cp/sob/abd pain/nausea/vomiting. Currently getting syncope workup. Family History: Diabetes mellitus G8 SISTER, Onset:40's - 50 Allergies: Coded Allergies: NO KNOWN ALLERGIES (Unverified , 07/09/24) Home Meds Reported Medications Levothyroxine Sodium (Levothyroxine Sodium) 25 Mcg Tab, 25 MCG PO QAM, MCG 07/09/24 Atorvastatin Calcium (Lipitor) 40 Mg Tab, 40 MG PO, TAB 07/09/24 Semaglutide (Ozempic) 2 Mg/3 Ml Inj, 2 MG SC, INJ 07/09/24 Current Medications Current Medications Medications (Trade) Dose Ordered Sig/Esmer Route PRN Reason Start Time Stop Time Status Last Admin Sodium Chloride (Saline Lock Ns) 10 ml Q8HR IV 07/09/24 22:00 07/10/24 05:30 Docusate Sodium (Colace Capsule) 100 mg BIDPRN PRN PO FOR CONSTIPATION 07/09/24 14:15 Acetaminophen (Tylenol Tablet) 650 mg Q6HP PRN PO PAIN SCALE 1-3 OR TEMP>100.4 07/09/24 14:15 07/10/24 08:39 Acetaminophen/ Hydrocodone Bitart (Murphys 5/325MG Tab) 1 tab Q4HP PRN PO MODERATE PAIN (4-6 PAIN SCALE) 07/09/24 14:15 07/10/24 12:05 Hydromorphone HCl (Dilaudid Injection) 0.5 mg Q4HP PRN IV SEVERE PAIN (7-10 PAIN SCALE) 07/09/24 14:15 07/10/24 08:32 Ondansetron HCl (Zofran) 4 mg Q4HP PRN IV NAUSEA / VOMITING 07/09/24 14:15 Review of Systems 10 point ROS is neg except per HPI Vital Signs Vital Signs Date Time Temp Pulse Resp B/P (MAP) Pulse Ox O2 Delivery O2 Flow Rate FiO2 07/10/24 12:40 99.9 108 18 142/81 (101) 80 99.9 07/09/24 21:00 Room Air* 0 21 Physical Exam NAD RUE splint in place cr less then 2 sec finger ext/flex RLE: splint in place +ehl/fhl foot wwp Labs/Diagnostic Data Labs Test 07/10/24 05:49 07/09/24 20:07 07/09/24 12:40 07/09/24 11:37 Range/Units White Blood Count 5.8 # 4.4-10.8 10^3/uL Red Blood Count 4.85 4.0-5.20 10^6/uL Hemoglobin 13.8 12.2-16.2 g/dL Hematocrit 41.2 36.0-46.0 % Mean Corpuscular Volume 84.9 80.0-100.0 fL Mean Corpuscular Hemoglobin 28.6 28.0-32.0 pg Mean Corpuscular Hemoglobin Concent 33.6 32.0-36.0 g/dL Red Cell Distribution Width 15.3 H 11.8-14.3 % Platelet Count 168 140-450 10^3/uL Mean Platelet Volume 8.1 6.9-10.8 fL Neutrophils (%) (Auto) 77.7 37.0-80.0 % Lymphocytes (%) (Auto) 13.0 10.0-50.0 % Monocytes (%) (Auto) 7.4 0.0-12.0 % Eosinophils (%) (Auto) 1.6 0.0-7.0 % Basophils (%) (Auto) 0.3 0.0-2.0 % Neutrophils # (Auto) 4.5 1.6-8.6 10 ^3/uL Lymphocytes # (Auto) 0.8 0.4-5.4 10 ^3/uL Monocytes # (Auto) 0.4 0-1.3 10 ^3/uL Eosinophils # (Auto) 0.1 0-0.8 10 ^3/uL Basophils # (Auto) 0 0-0.2 10 ^3/uL Nucleated Red Blood Cells 0.1 % Sodium Level 139 136-145 mmol/L Potassium Level 4.0 3.5-5.1 mmol/L Chloride Level 105 98-107 mmol/L Carbon Dioxide Level 25 20-31 mmol/L Anion Gap 9 5-15 Blood Urea Nitrogen 13 9-23 mg/dL Creatinine 0.45 L 0.550-1.02 mg/dL Glomerular Filtration Rate Calc 108 >90 mL/min BUN/Creatinine Ratio 28.9 H 10.0-20.0 Serum Glucose 122 H 74-106 mg/dL Calcium Level 8.6 L 8.7-10.4 mg/dL Total Bilirubin 0.9 0.2-1.0 mg/dL Aspartate Amino Transferase (AST) 150 H 13-40 U/L Alanine Aminotransferase (ALT) 237 H 7-40 U/L Alkaline Phosphatase 118 H 46-116 U/L Total Protein 6.1 5.7-8.2 g/dL Albumin 3.6 3.2-4.8 g/dL Prothrombin Time 10.3 9.3-11.8 sec Prothrombin Time INR 0.97 0.9-1.15 Troponin I High Sensitivity < 3 L </=34 ng/L Hemoglobin A1c 5.7 <5.7 % A1C Plan/Recommendation Right bimalleolar ankle fracture and Right comminuted intra-articular distal radius fracture 1. I had a long and thorough discussion with patient regarding her condition. Questions for patient answered. Risks benefits options and alternatives reviewed. Risks include but not exclusive to bleeding infection nerve injury hardware failure nonunion malunion chronic pain blood clots cardiac and pulmonary complications amputation and . Patient understands the morbidity and mortality of fractures. Patient wishes to proceed with surgery. 2. Plan for open reduction internal fixation of right ankle fracture, possible closed versus open reduction of right distal radius fracture; Right distal radius fracture may need a hand surgeon at a later date but we will better reduce it in the operating room. 3. NPO/IVF 4. pain control Plan discussed with: Patient LILO SIMMS MD July 10, 2024 13:27
[2024-07-10] MEDS ORDERED: GLYCOPYRROLATE 0.2 MG/ML 1ML VIAL ONE (16:28)
[2024-07-10] MEDS ORDERED: LIDOCAINE 1% INJ PF 5ML AMP ONE (16:28)
[2024-07-10] MEDS ORDERED: ONDANSETRON HCL 4 MG/2 ML VIAL ONE (16:28)
[2024-07-10] MEDS ORDERED: PROPOFOL 10 MG/ML 20 ML IV ONE (16:28)
[2024-07-10] MEDS ORDERED: DexAMETHasone SOD PHOS 10MG/1ML VIAL INJ ONE (16:28)
[2024-07-10] MEDS ORDERED: KETOROLAC TROMETH 30 MG/ML 1ML VIAL ONE (16:28)
[2024-07-10] MEDS ORDERED: KETAMINE 50mg/ML 1ml syringe ONE (16:37)
[2024-07-10] MEDS ORDERED: fentaNYL CITRATE 100 MCG/2 ML VL ONE (16:37)
[2024-07-10 16:42] VITALS: BP 145/70; PULSE 69; RESP 18; TEMP 98.3; O2SAT 97
--- NOTE | 2024-07-10 18:29 | DVHPN2 ---
Subjective I am assuming the care of the patient was from today onwards who was under the care of the hospitalist team. 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 no motor deficit accept right upper and right lower extremity can not be tested because of recent fracture Medications Current Medications Medications Dose Ordered Sig/Esmer Route Start Time Stop Time Status Last Admin Dose Admin Sodium Chloride 10 ml Q8HR IV 07/09/24 22:00 07/10/24 13:51 10 ML Docusate Sodium 100 mg BIDPRN PRN PO 07/09/24 14:15 Acetaminophen 650 mg Q6HP PRN PO 07/09/24 14:15 07/10/24 08:39 650 MG Acetaminophen/ Hydrocodone Bitart 1 tab Q4HP PRN PO 07/09/24 14:15 07/10/24 12:05 1 TAB Hydromorphone HCl 0.5 mg Q4HP PRN IV 07/09/24 14:15 07/10/24 08:32 0.5 MG Ondansetron HCl 4 mg Q4HP PRN IV 07/09/24 14:15 Enoxaparin Sodium 40 mg DAILY SC 07/11/24 10:00 UNV Laboratory Results Laboratory Tests 07/10/24 05:49 Chemistry Test 07/10/24 05:49 Albumin 3.6 g/dL (3.2-4.8) Calcium Level 8.6 mg/dL (8.7-10.4) L Total Protein 6.1 g/dL (5.7-8.2) Coagulation Test 07/09/24 20:07 Prothrombin Time 10.3 sec (9.3-11.8) Prothrombin Time INR 0.97 (0.9-1.15) LFT Test 07/10/24 05:49 Alanine Aminotransferase (ALT) 237 U/L (7-40) H Alkaline Phosphatase 118 U/L (46-116) H Aspartate Amino Transferase (AST) 150 U/L (13-40) H Total Bilirubin 0.9 mg/dL (0.2-1.0) Assessment/Plan Assessment/Plan 63-year-old female with a known history of hypothyroidism, dyslipidemia currently on statin presented to the hospital status post mechanical fall found to have 1. Right-sided bimalleolar ankle fracture status post mechanical fall 2. Right upper extremity communicated intra-articular distal radius fracture status post mechanical fall 3. Transaminitis suspect secondary to atorvastatin -DVT prophylaxis with the Lovenox, keep holding atorvastatin, repeat liver function tests, right upper quadrant abdominal ultrasound and acute hepatitis panel -GI consultation -orthopedic evaluation for surgical intervention for the right upper extremity and right bimalleolar fracture Plan discussed with: Patient, Spouse My Orders Orders - MAINE URIOSTEGUI MD Procedure Category Date Status Time Enoxaparin Sodium PHA 07/10/24 Logged (Lovenox) 18:30 Enoxaparin Sodium PHA 07/11/24 Logged (Lovenox) 10:00 * [facility] [employer] CONS 07/10/24 Transmitted 18:23 Abdomen Limited US 07/10/24 Logged 18:23 Acute Hepatitis Panel LAB 07/10/24 Transmitted 18:25 Date of Service: July 10, 2024 Billing Provider: MAINE URIOSTEGUI MD Common Visit Codes: [id number] INP/OBS CARE(MOD) MAINE URIOSTEGUI MD July 10, 2024 18:29
--- NOTE | 2024-07-10 18:59 | DVHINCON2 ---
Date of service: July 10, [address] Hernández Reason for Consultation Elevated liver tests History of Present Illness 63 y/o F, BIBA, presents to the ED for CC of s/p fall. EMS reports, patient is coming from home where she suffered a fall off a chair following nailing a object into the wall. EMS states, patient reportedly felt dizzy and decided to step down from the chair, twisting her right ankle and breaking her fall with her right wrist. Following trauma patient complains of head pain, right wrist and right ankle pain. In route, to the ED patient was given Tylenol IV; reports current 6/10 pain. Patient denies LOC, head injury, open abrasions, nausea, or v omiting. No other symptoms or modifying factors present at this time.Patient has pain swelling inability to bear weight on the right ankle and wrist. There was no nausea vomiting no hematemesis no bright red blood per rectum. GI was consulted because of elevated liver enzymes. On reviewing history the patient had been on Ozempic and had lost about 30 lb.This is her 1st admission to this hospital Past Medical History PMHx of hyperthyroidism, HTN, and DM Past Surgical History Two hernias Hemorrhoids Hysterectomy Family History: Diabetes mellitus G8 SISTER, Onset:40's - 50 Allergies: Coded Allergies: NO KNOWN ALLERGIES (Unverified , 07/09/24) Home Meds Reported Medications Levothyroxine Sodium (Levothyroxine Sodium) 25 Mcg Tab, 25 MCG PO QAM, MCG 07/09/24 Atorvastatin Calcium (Lipitor) 40 Mg Tab, 40 MG PO, TAB 07/09/24 Semaglutide (Ozempic) 2 Mg/3 Ml Inj, 2 MG SC, INJ 07/09/24 Current Medications Current Medications Medications (Trade) Dose Ordered Sig/Esmer Route PRN Reason Start Time Stop Time Status Last Admin Sodium Chloride (Saline Lock Ns) 10 ml Q8HR IV 07/09/24 22:00 07/10/24 13:51 Enoxaparin Sodium (Lovenox) 40 mg DAILY SC 07/11/24 10:00 Vital Signs Vital Signs Date Time Temp Pulse Resp B/P (MAP) Pulse Ox O2 Delivery O2 Flow Rate FiO2 07/10/24 16:42 98.3 69 18 145/70 (95) 97 98.3 07/10/24 08:00 Nasal Cannula* 2 28 Physical Exam Generally 63 years old woman, overweight, sitting on wheelchair. Mild distress HEENT-atraumatic, normocephalic Heart-regular rate and rhythm Lungs clear to auscultate Abdomen soft nontender nondistended Musculoskeletal-edema at right wrist. Tender to palpate no erythema. Edema and ecchymosis on right medial ankle region. Tender to palpate Neuro-strength and sensory intact AO x3 Labs/Diagnostic Data Labs Test 07/10/24 05:49 07/09/24 20:07 07/09/24 12:40 07/09/24 11:37 Range/Units White Blood Count 5.8 # 4.4-10.8 10^3/uL Red Blood Count 4.85 4.0-5.20 10^6/uL Hemoglobin 13.8 12.2-16.2 g/dL Hematocrit 41.2 36.0-46.0 % Mean Corpuscular Volume 84.9 80.0-100.0 fL Mean Corpuscular Hemoglobin 28.6 28.0-32.0 pg Mean Corpuscular Hemoglobin Concent 33.6 32.0-36.0 g/dL Red Cell Distribution Width 15.3 H 11.8-14.3 % Platelet Count 168 140-450 10^3/uL Mean Platelet Volume 8.1 6.9-10.8 fL Neutrophils (%) (Auto) 77.7 37.0-80.0 % Lymphocytes (%) (Auto) 13.0 10.0-50.0 % Monocytes (%) (Auto) 7.4 0.0-12.0 % Eosinophils (%) (Auto) 1.6 0.0-7.0 % Basophils (%) (Auto) 0.3 0.0-2.0 % Neutrophils # (Auto) 4.5 1.6-8.6 10 ^3/uL Lymphocytes # (Auto) 0.8 0.4-5.4 10 ^3/uL Monocytes # (Auto) 0.4 0-1.3 10 ^3/uL Eosinophils # (Auto) 0.1 0-0.8 10 ^3/uL Basophils # (Auto) 0 0-0.2 10 ^3/uL Nucleated Red Blood Cells 0.1 % Sodium Level 139 136-145 mmol/L Potassium Level 4.0 3.5-5.1 mmol/L Chloride Level 105 98-107 mmol/L Carbon Dioxide Level 25 20-31 mmol/L Anion Gap 9 5-15 Blood Urea Nitrogen 13 9-23 mg/dL Creatinine 0.45 L 0.550-1.02 mg/dL Glomerular Filtration Rate Calc 108 >90 mL/min BUN/Creatinine Ratio 28.9 H 10.0-20.0 Serum Glucose 122 H 74-106 mg/dL Calcium Level 8.6 L 8.7-10.4 mg/dL Total Bilirubin 0.9 0.2-1.0 mg/dL Aspartate Amino Transferase (AST) 150 H 13-40 U/L Alanine Aminotransferase (ALT) 237 H 7-40 U/L Alkaline Phosphatase 118 H 46-116 U/L Total Protein 6.1 5.7-8.2 g/dL Albumin 3.6 3.2-4.8 g/dL Prothrombin Time 10.3 9.3-11.8 sec Prothrombin Time INR 0.97 0.9-1.15 Troponin I High Sensitivity < 3 L </=34 ng/L Hemoglobin A1c 5.7 <5.7 % A1C R Wrist X ray IMPRESSION: Comminuted and displaced fracture of the distal radius and ulna. Tibia/Fibula X ray IMPRESSION: 1. Acute trimalleolar fracture. No dislocation. R forearm X ray IMPRESSION: Comminuted and displaced fracture of the distal radius and ulna. R ankle X ray IMPRESSION: 1. Fracture of the distal fibula and medial malleolus. 2. Soft tissue swelling of the ankle. Problems(with codes): (1) Elevated liver enzymes (2) Near syncope (3) Ankle fracture (4) Falling (5) Wrist fracture Plan/Recommendation Assessment and plan Mild elevation in alkaline phosphatase likely related to fractures Mild elevation in AST ALT likely related to underlying fatty liver Check right upper quadrant ultrasound Check hepatitis panel NATACHA and serum ferritin I will monitor labs and follow up patient with you Advance diet as tolerated ; monitor labs Orthopedic consult appreciated and cardiac workup ongoing Plan discussed with: Other (None) LION COURTNEY MD July 10, 2024 18:59
--- NOTE | 2024-07-10 19:10 | DVH ---
Procedure: US ABDOMEN LIMITED Study Date and Requested Time: 07/10/2024 06:32 PM History: Transaminitis Comparison: None Technique: Multiple high resolution powell-scale images obtained of the right upper quadrant of the abd omen with color Doppler for evaluation of blood flow and vascularity as indicated. Findings: Liver normal in size, measuring 15 cm in length, with homogenous echotexture and normal contours. No evidence of focal hepatic lesions, intrahepatic or extrahepatic ductal dilatation. Common bile duct m easures 0.5 cm in diameter. Status post cholecystectomy Pancreas is obscured by bowel gas. Right kidney measures 9.3 cm in length, with normal contours, echotexture, and cortical thickness. No evidence of hydronephrosis, calculi, cystic or solid renal lesions. Partially visualized inferior vena cava unremarkable. Impression: Limited evaluation due to patient body habitus. No acute abnormalities of the right upper abdominal quadrant. Gallbladder is not visualized provided history of cholecystectomy
[2024-07-10] MEDS: ENOXAPARIN SOD 40 MG/0.4 ML SYRINGE SC ONE (19:53)
[2024-07-10 21:00] VITALS: BP 142/70; PULSE 79; RESP 18; TEMP 98; O2SAT 94
[2024-07-11] VITALS (8 sets, daily range): BP systolic 105–163; BP diastolic 58–76; PULSE 68–88; RESP 7–19; TEMP 96.6–99.2; O2SAT 95–99
[2024-07-11 06:56] LABS: Basophils # (auto) 0 10 ^3/uL (0-0.2); Basophils % (auto) 0.3 % (0.0-2.0); Eosinophils # (auto) 0.2 10 ^3/uL (0-0.8); Eosinophils % (auto) 3.9 % (0.0-7.0); Hemoglobin 14.3 g/dL (12.2-16.2); Lymphocytes # (auto) 0.8 10 ^3/uL (0.4-5.4); Lymphocytes % (auto) 15.8 % (10.0-50.0); Mean Corpuscular Hgb Conc. 32.5 g/dL (32.0-36.0); Mean Corpuscular Volume 86.1 fL (80.0-100.0); Monocytes # (auto) 0.5 10 ^3/uL (0-1.3); Monocytes % (auto) 8.9 % (0.0-12.0); Neutrophils # (auto) 3.8 10 ^3/uL (1.6-8.6); Neutrophils % (auto) 71.1 % (37.0-80.0); Nucleated Red Blood Cells % 0.1 %; Platelet Count (auto) 135 10^3/uL (140-450); Red Blood Cells 5.11 10^6/uL (4.0-5.20); Red Cell Distribution Width 15.6 % (11.8-14.3); White Blood Cell 5.3 10^3/uL (4.4-10.8)
[2024-07-11 07:06] LABS: Albumin 3.8 g/dL (3.2-4.8); Anion Gap 8 (5-15); Blood Urea Nitrogen 9 mg/dL (9-23); Calcium 9.4 mg/dL (8.7-10.4); Carbon Dioxide 28 mmol/L (20-31); Chloride 103 mmol/L (98-107); LDL Cholesterol 75 mg/dL (< 100); Potassium 4.1 mmol/L (3.5-5.1); Sodium 139 mmol/L (136-145); Total Protein 6.5 g/dL (5.7-8.2); Triglycerides 116 mg/dL (< 150)
[2024-07-11 07:07] LABS: Bilirubin, Total 1.1 mg/dL (0.2-1.0); Cholesterol 158 mg/dL (< 200)
[2024-07-11 07:20] LABS: Alanine Aminotransferase 250 U/L (7-40); Alkaline Phosphatase 149 U/L (46-116); Aspartate Aminotransferase 123 U/L (13-40); Glucose 116 mg/dL (74-106); HDL Cholesterol 64 mg/dL (40-59)
[2024-07-11] MEDS: ceFAZolin 2 GM/D5W50ml 50 ML IV ONE (08:18)
[2024-07-11] MEDS: VANCOMYCIN HCL 1000 MG VL ONE (08:19)
[2024-07-11] MEDS: METHYLENE BLUE 0.5% 5MG/ML 10ml AMP IV ONE (08:20)
[2024-07-11] MEDS: ROPIVACAINE 0.5% (5MG/ML) 20ML AMPULE IJ ONE (08:25)
[2024-07-11] MEDS: LIDOCAINE W/ EPINEPHRINE 1% 20ML VIAL ONE (08:25)
[2024-07-11] MEDS ORDERED: MIDAZOLAM HCL 2MG/2ML 2ml VIAL (1mg/ml) ONE (08:26)
[2024-07-11] MEDS ORDERED: fentaNYL CITRATE 100 MCG/2 ML VL ONE (08:26)
[2024-07-11] MEDS ORDERED: ROCURONIUM 10MG/ML 10ML VIAL IV ONE (08:27)
[2024-07-11] MEDS ORDERED: PROPOFOL 10 MG/ML 20 ML IV ONE (08:27)
[2024-07-11] MEDS ORDERED: METOCLOPRAMIDE HCL 5MG/ml INJ 2ml VIAL ONE (08:27)
[2024-07-11] MEDS ORDERED: LIDOCAINE 2% (LOCAL ANESTH.) PF 5ml SDV ONE (08:27)
[2024-07-11] MEDS ORDERED: ONDANSETRON HCL 4 MG/2 ML VIAL ONE (08:27)
[2024-07-11 08:31] LABS: Hepatitis B Core Total AB Negative (Negative)
[2024-07-11 08:54] LABS: Lipase 44 U/L (12-53)
[2024-07-11] MEDS ORDERED: ePHEDrine SULFATE 50 MG/ML AMP ONE (08:54)
[2024-07-11] MEDS ORDERED: SUGAMMADEX 200mg/2ml Vial (100MG/ML) IV ONE (09:12)
[2024-07-11] MEDS ORDERED: KETOROLAC TROMETH 30 MG/ML 1ML VIAL ONE (09:12)
--- NOTE | 2024-07-11 09:32 | DVHOP2 ---
Operative Report - 2 Report Details Date: 07/11/24 Preop Diagnosis: Right bimalleolar ankle fracture and comminuted right intra-articular distal radius fracture Postop Diagnosis: Right bimalleolar ankle fracture and comminuted right intra-articular distal radius fracture Surgeon: Go Osorio MD Director Of Patient Safety: Bowen BONDS Anesthesiologist: Manjit CUMMINGS Anesthesia: General, Regional Implant: Flower Fibula nail with locking and syndesmotic screw k-wire x 3 for distal radius Consent: The patient was informed of the risks and benefits of the procedure. These include but are not limited to complications of anesthesia, postoperative infection, incomplete relief of symptoms, recurrence of symptoms, damage to blood vessels, nerves and tendons, deep venous thrombosis, pulmonary embolism and possible need for repeat surgery in the future. Estimated Blood Loss: 10 cc Name of Procedure Performed 1. Open reduction internal fixation if right bimalleolar ankle fracture 2. Open reduction internal fixation of right intra-articular 3 part distal radius fracture 3. Intraoperative fluoroscopy Procedure Details Procedure Details: HISTORY OF PRESENT ILLNESS: Risks/benefits/options and alternatives were discussed in length. Risks associated with anesthesia, infection, damage to nerves and blood vessels, and bleeding or blood clots. Problems after ankle fracture surgery include ankle joint stiffness, weakness, need for further surgery and arthritis. Possible complications after ankle fracture surgery include infection and problems with healing. PROCEDURE: After all potential complications and risks as well as risks and benefits of the above-mentioned procedure was discussed at length with the patient and family, informed consent was obtained. The lower extremity was then confirmed with the operating surgeon, the patient, the nursing staff and Department of Anesthesia. The patient was then transferred to preoperative area in the Operative Suite and placed on the operating room table in supine position. At this time, the anesthesia was performed. All bony prominences were well padded at this time. A nonsterile tourniquet was placed on the left upper thigh of the patient. This was then removed and the right lower extremity was sterilely prepped and draped in the usual sterile fashion. The right lower extremity was then elevated and exsanguinated using Esmarch and tourniquet was then placed to 250 mmHg. Next, after all bony and soft tissue landmarks were identified, a 3 cm longitudinal incision was made directly over the lateral mal fracture. A sharp dissection was carefully taken down to the level of bone taking care to protect the neurovascular structures. Once the bone was reached, the fractured site was identified. The bony ends were then opened and divided of all hematoma as well as excess periosteum within the fracture site. For the lateral side he had a pos terior comminution with a distal diagonal fracture. With manual traction and manipulation with bone reduction clamps we were able to reduce patient fracture. Intraoperative fluoroscopy confirmed reduction. A Fibula nail was then selected for instrumentation with distal locking screw. Once out to length her syndesmosis reduced. We placed syndesmotic screw under fluoro. Next Fluorsocpy was used to visualize the hardware placement as well as the fracture reduction appeared to be in good anatomic position, all hardware was in good position. I then percutaneously placed guidewire on medial mal and then placed an ossio screw over guidewire. They were in good overall position and there was no lateralization of the joint. At this time, each wound was copiously irrigated and suctioned dry. The wounds were then closed using #2-0 Vicryl suture in subcutaneous fashion followed by 3-0 nylon on the skin. A sterile dressing was applied consistent with Adaptic, 4x4s, Kerlix, and Webril. An ankle splint was then placed on the right lower extremity. I then moved to cristin distal radius -- she had a comminuted intra-articular distal radius fracture but it was limited bone availability by fracture site. I decided to reduced fracture and hold it in place with multiple k-wires once its out to length. At this time an approximately 3 cm longitudinal incision was then made overlying the right flexor carpi radialis tendon from the flexion crease to the wrist proximally. This was carried down to the flexor carpi radialis, which was then retracted ulnarly. The floor of the flexor carpi radialis was then incised exposing the flexor pronator muscles. The flexor pollicis longus was retracted ulnarly and the pronator quadratus was longitudinally incised 1 cm from its origin. It was then elevated off of the fracture site exposing the fracture site, which was dorsally displaced. This was an intraarticular three-part fracture. Under image control, the volar pieces and dorsal pieces were then carefully manipulated and reduced. Then, 2.06 two-inch K-wires were drilled radial into the volar ulnar fragment and then a second K- wire was then drilled from the dorsal radial to the dorsal ulnar piece. The fracture was then manipulated. The fracture ends were copiously irrigated with normal saline and curetted and then the fracture was reduced in the usual fashion by recreating the defect and distracting it. Further K-wires were then placed through the radial styloid into the proximal fragment. Patient had significant comminution. There was excellent reduction of the fragments and the fracture; excellent reduction of the intraarticular component and the fracture. Incision was then copiously irrigated with normal saline. Homeostasis was maintained with electrocautery. The pronator quadratus was closed with 3-0 Vicryl and the above skin incisions were closed proximally with 3-0 nylon. A large bulky dressing was then applied with a volar short-arm splint maintaining the wrist in neutral position. The patient was transferred back to the [facility] and to the Postanesthetic Care Unit. The patient tolerated the procedure well. There were no complications. Condition Good Disposition Still a Patient GO OSORIO MD July 11, 2024 09:32
[2024-07-11] MEDS: BUPIVACAINE HCL 50 ML ONE (09:38)
[2024-07-11] MEDS: ENOXAPARIN SOD 40 MG/0.4 ML SYRINGE SC SCH (10:00)
[2024-07-11 10:07] LABS: Hepatitis B Surface Antigen Negative (Negative)
[2024-07-11] MEDS: METOCLOPRAMIDE HCL 5MG/ml INJ 2ml VIAL IV ONE (10:15)
[2024-07-11] MEDS ORDERED: HYDROmorphone HCL 2 MG/ML VL/or syr IV PRN (10:15)
[2024-07-11] MEDS: ONDANSETRON HCL 4 MG/2 ML VIAL IV ONE (10:15)
[2024-07-11] MEDS ORDERED: hydrALAZINE HCL 20 MG/ML VL IV PRN (10:15)
[2024-07-11 10:29] LABS: Hepatitis A Ab IgM Negative; Hepatitis B Core IgM Negative (Negative); Hepatitis C Antibody Negative (Negative)
[2024-07-11 10:37] LABS: Hepatitis A Total Antibody Positive (Negative); Hepatitis B Surface Antibody Negative (Negative); Hepatitis B Surface Antigen Negative (Negative); Hepatitis C Antibody Negative (Negative)
--- NOTE | 2024-07-11 10:45 | DVH ---
XY C ARM FLUOROSCOPY UP TO 60MIN, HISTORY: ORIF RT ANKLE RT WRIST TECHNICAL DATA: 4 intraoperative fluoroscopic spot images were obtained wrist and ankle. COMPARISON: None FINDINGS/IMPRESSION: C-arm fluoroscopic images were obtained for anatomic localization. The images are of low resolution b ut demonstrate instrumentation over the wrist and ankle . Total fluoroscopy time was 38 seconds. ]Pl ease see the operative report for further details.
[2024-07-11] MEDS: ceFAZolin 2 GM/D5W50ml 50 ML IV SCH (13:34)
[2024-07-11 13:53] LABS: % Iron Saturation 13.8 % (15-50)
--- NOTE | 2024-07-11 15:20 | DVHPN2 ---
Progress Note - Dictate Date Seen: July 11, 2024 Medical Necessity Reason Pt with a Central, PICC or Fol: No Subjective Patient seen at bedside today persistent elevation in liver enzymes;Liver ultrasound negative, previous cholecystectomy Hepatitis panel negative, NATACHA pending, iron profile normal She went to the OR this morning and underwent surgery Postop Diagnosis: Right bimalleolar ankle fracture and comminuted right intra-articular distal radius fracture Surgeon: Go Osorio MD Proc Tech: Bowen BONDS Anesthesia: General, Regional Implant: Flower Fibula nail with locking and syndesmotic screw k-wire x 3 for distal radius vital signs Vital Sign Date Time Temp Pulse Resp B/P (MAP) Pulse Ox O2 Delivery O2 Flow Rate FiO2 07/11/24 13:00 97.2 87 16 105/58 (74) 98 97.2 07/11/24 10:27 Nasal Cannula 2.0 91 Total Intake and Output 07/10/24 07/10/24 07/11/24 15:00 23:00 07:00 Intake Total 200 ml 400 ml Balance 200 ml 400 ml medications Current Medications Medications Dose Ordered Sig/Esmer Route Start Time Stop Time Status Last Admin Dose Admin Sodium Chloride 10 ml Q8HR IV 07/09/24 22:00 07/11/24 13:47 10 ML Docusate Sodium 100 mg BIDPRN PRN PO 07/09/24 14:15 Acetaminophen 650 mg Q6HP PRN PO 07/09/24 14:15 07/10/24 08:39 650 MG Acetaminophen/ Hydrocodone Bitart 1 tab Q4HP PRN PO 07/09/24 14:15 07/10/24 20:54 1 TAB Hydromorphone HCl 0.5 mg Q4HP PRN IV 07/09/24 14:15 07/10/24 08:32 0.5 MG Ondansetron HCl 4 mg Q4HP PRN IV 07/09/24 14:15 Enoxaparin Sodium 40 mg DAILY SC 07/11/24 10:00 Cefazolin Sodium/ Dextrose 50 ml @ 50 mls/hr Q8HR IV 07/11/24 14:00 07/12/24 06:59 07/11/24 13:34 50 MLS/HR objective Generally 63 years old woman, overweight, obese laying in bed,no distress HEENT-atraumatic, normocephalic Heart-regular rate and rhythm Lungs clear to auscultate Abdomen soft nontender nondistended obese Musculoskeletal-edema at right wrist. Dressing on right wrist and right leg laboratory and microbiology Laboratory Tests 07/11/24 05:36 Test 07/11/24 05:36 Range/Units Serum Glucose 116 H 74-106 mg/dL Problems(with codes): (1) Elevated liver enzymes (2) Near syncope (3) Ankle fracture (4) Wrist fracture (5) Falling Prognosis Assessment plan I believe the mild elevation in liver enzymes are likely related to systemic inflammatory response to fall and multiple fractures Check NATACHA, patient is likely to also have underlying mild fatty liver Continue to monitor labs I will follow up patient with you Advance diet as tolerated Plan discussed with: Patient, Daughter LION COURTNEY MD July 11, 2024 15:20
--- NOTE | 2024-07-11 15:27 | DVHPN2 ---
Subjective Patient is currently complaining of 6/10 pain in the right ankle. 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 Medications Current Medications Medications Dose Ordered Sig/Esmer Route Start Time Stop Time Status Last Admin Dose Admin Sodium Chloride 10 ml Q8HR IV 07/09/24 22:00 07/11/24 13:47 10 ML Docusate Sodium 100 mg BIDPRN PRN PO 07/09/24 14:15 Acetaminophen 650 mg Q6HP PRN PO 07/09/24 14:15 07/10/24 08:39 650 MG Acetaminophen/ Hydrocodone Bitart 1 tab Q4HP PRN PO 07/09/24 14:15 07/10/24 20:54 1 TAB Hydromorphone HCl 0.5 mg Q4HP PRN IV 07/09/24 14:15 07/10/24 08:32 0.5 MG Ondansetron HCl 4 mg Q4HP PRN IV 07/09/24 14:15 Enoxaparin Sodium 40 mg DAILY SC 07/11/24 10:00 Cefazolin Sodium/ Dextrose 50 ml @ 50 mls/hr Q8HR IV 07/11/24 14:00 07/12/24 06:59 07/11/24 13:34 50 MLS/HR Laboratory Results Laboratory Tests 07/11/24 05:36 Chemistry Test 07/11/24 05:36 Albumin 3.8 g/dL (3.2-4.8) Calcium Level 9.4 mg/dL (8.7-10.4) Total Protein 6.5 g/dL (5.7-8.2) Lipid panel Test 07/11/24 05:36 Cholesterol Level 158 mg/dL (< 200) HDL Cholesterol 64 mg/dL (40-59) H Lipase 44 U/L (12-53) Triglycerides Level 116 mg/dL (< 150) LFT Test 07/11/24 05:36 Alanine Aminotransferase (ALT) 250 U/L (7-40) H Alkaline Phosphatase 149 U/L (46-116) H Aspartate Amino Transferase (AST) 123 U/L (13-40) H Total Bilirubin 1.1 mg/dL (0.2-1.0) H Assessment/Plan Assessment/Plan 63-year-old female with a known history of hypothyroidism, dyslipidemia currently on statin presented to the hospital status post mechanical fall found to have 1. Right-sided bimalleolar ankle fracture status post mechanical fall status post open reduction and internal fixation 2. Right upper extremity communicated intra-articular distal radius fracture status post mechanical fall status post open reduction and internal fixation 3. Transaminitis suspect secondary to atorvastatin -DVT GI prophylaxis, pain meds Physical therapy evaluation and treatment Follow up Orthopedics. Plan discussed with: Patient, Daughter My Orders Orders - MAINE URIOSTEGUI MD Procedure Category Date Status Time Enoxaparin Sodium PHA 07/11/24 In Process (Lovenox) 10:00 * Gi Dvh Switchgear Repairer CONS 07/10/24 Transmitted 18:23 Abdomen Limited US 07/10/24 Resulted 18:23 Communication Order ORDERS 07/10/24 Transmitted 18:36 Date of Service: July 11, 2024 Billing Provider: MAINE URIOSTEGUI MD Common Visit Codes: [id number] INP/OBS CARE(MOD) MAINE URIOSTEGUI MD July 11, 2024 15:27
[2024-07-12] VITALS (8 sets, daily range): BP systolic 108–127; BP diastolic 62–70; PULSE 70–76; RESP 16–20; TEMP 97.9–99.2; O2SAT 95–99
[2024-07-12 06:11] LABS: Basophils # (auto) 0 10 ^3/uL (0-0.2); Basophils % (auto) 0.3 % (0.0-2.0); Eosinophils # (auto) 0.2 10 ^3/uL (0-0.8); Hematocrit 40.6 % (36.0-46.0); Hemoglobin 13.3 g/dL (12.2-16.2); Lymphocytes % (auto) 16.4 % (10.0-50.0); Mean Corpuscular Hemoglobin 28.4 pg (28.0-32.0); Mean Corpuscular Hgb Conc. 32.9 g/dL (32.0-36.0); Mean Corpuscular Volume 86.3 fL (80.0-100.0); Monocytes # (auto) 0.6 10 ^3/uL (0-1.3); Neutrophils # (auto) 4.3 10 ^3/uL (1.6-8.6); Neutrophils % (auto) 70.3 % (37.0-80.0); Nucleated Red Blood Cells % 0.1 %; Platelet Count (auto) 158 10^3/uL (140-450); Red Cell Distribution Width 15.5 % (11.8-14.3); White Blood Cell 6.2 10^3/uL (4.4-10.8)
[2024-07-12 06:44] LABS: Anion Gap 8 (5-15); Blood Urea Nitrogen 8 mg/dL (9-23); Calcium 9.2 mg/dL (8.7-10.4); Carbon Dioxide 28 mmol/L (20-31); Chloride 103 mmol/L (98-107); Glucose 117 mg/dL (74-106); Potassium 4.3 mmol/L (3.5-5.1); Sodium 139 mmol/L (136-145); Total Protein 6.2 g/dL (5.7-8.2)
[2024-07-12 06:45] LABS: Alanine Aminotransferase 167 U/L (7-40); Albumin 3.6 g/dL (3.2-4.8); Alkaline Phosphatase 141 U/L (46-116); Aspartate Aminotransferase 90 U/L (13-40); Bilirubin, Total 1.2 mg/dL (0.2-1.0)
--- NOTE | 2024-07-12 14:55 | DVHPN2 ---
Subjective Patient's stood up with the physical therapy but did not take any steps. 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 Medications Current Medications Medications Dose Ordered Sig/Esmer Route Start Time Stop Time Status Last Admin Dose Admin Sodium Chloride 10 ml Q8HR IV 07/09/24 22:00 07/12/24 05:53 10 ML Docusate Sodium 100 mg BIDPRN PRN PO 07/09/24 14:15 Acetaminophen 650 mg Q6HP PRN PO 07/09/24 14:15 07/11/24 16:25 650 MG Acetaminophen/ Hydrocodone Bitart 1 tab Q4HP PRN PO 07/09/24 14:15 07/12/24 06:39 1 TAB Hydromorphone HCl 0.5 mg Q4HP PRN IV 07/09/24 14:15 07/10/24 08:32 0.5 MG Ondansetron HCl 4 mg Q4HP PRN IV 07/09/24 14:15 Enoxaparin Sodium 40 mg DAILY SC 07/11/24 10:00 07/12/24 08:23 40 MG Laboratory Results Laboratory Tests 07/12/24 05:03 Chemistry Test 07/12/24 05:03 Albumin 3.6 g/dL (3.2-4.8) Calcium Level 9.2 mg/dL (8.7-10.4) Total Protein 6.2 g/dL (5.7-8.2) LFT Test 07/12/24 05:03 Alanine Aminotransferase (ALT) 167 U/L (7-40) H Alkaline Phosphatase 141 U/L (46-116) H Aspartate Amino Transferase (AST) 90 U/L (13-40) H Total Bilirubin 1.2 mg/dL (0.2-1.0) H Assessment/Plan Assessment/Plan 63-year-old female with a known history of hypothyroidism, dyslipidemia currently on statin presented to the hospital status post mechanical fall found to have 1. Right-sided bimalleolar ankle fracture status post mechanical fall status post open reduction and internal fixation 2. Right upper extremity communicated intra-articular distal radius fracture status post mechanical fall status post open reduction and internal fixation 3. Transaminitis suspect secondary to atorvastatin -DVT GI prophylaxis, pain meds Physical therapy evaluation and treatment Follow up Orthopedics. -surgical services tech consultation for bedside commode front wheel walker, home physical therapy. Plan discussed with: Patient, Other My Orders Orders - MAINE URIOSTEGUI MD Procedure Category Date Status Time * Device Test Engineer CONS 07/12/24 Transmitted Consult Date of Service: July 12, 2024 Billing Provider: MAINE URIOSTEGUI MD Common Visit Codes: [id number] INP/OBS CARE(MOD) MAINE URIOSTEGUI MD July 12, 2024 14:55
--- NOTE | 2024-07-12 21:13 | DVHPN2 ---
Progress Note - Dictate Date Seen: July 12, 2024 Medical Necessity Reason Pt with a Central, PICC or Fol: No Subjective Patient seen at bedside today Liver enzymes trending down Liver ultrasound negative, previous cholecystectomy Hepatitis panel negative, NATACHA pending, iron profile normal POD # 1 S/P surgery on multiple fractures vital signs Vital Sign Date Time Temp Pulse Resp B/P (MAP) Pulse Ox O2 Delivery O2 Flow Rate FiO2 07/12/24 17:30 98.4 75 17 108/62 (77) 97 98.4 07/12/24 08:00 Nasal Cannula* 2 28 Total Intake and Output 07/11/24 07/11/24 07/12/24 15:00 23:00 07:00 Intake Total 50 ml 240 ml 400 ml Balance 50 ml 240 ml 400 ml medications Current Medications Medications Dose Ordered Sig/Esmer Route Start Time Stop Time Status Last Admin Dose Admin Sodium Chloride 10 ml Q8HR IV 07/09/24 22:00 07/12/24 14:00 10 ML Docusate Sodium 100 mg BIDPRN PRN PO 07/09/24 14:15 Acetaminophen 650 mg Q6HP PRN PO 07/09/24 14:15 07/11/24 16:25 650 MG Acetaminophen/ Hydrocodone Bitart 1 tab Q4HP PRN PO 07/09/24 14:15 07/12/24 18:12 1 TAB Hydromorphone HCl 0.5 mg Q4HP PRN IV 07/09/24 14:15 07/10/24 08:32 0.5 MG Ondansetron HCl 4 mg Q4HP PRN IV 07/09/24 14:15 Enoxaparin Sodium 40 mg DAILY SC 07/11/24 10:00 07/12/24 08:23 40 MG objective Generally 63 years old woman, overweight, obese laying in bed,no distress HEENT-atraumatic, normocephalic Heart-regular rate and rhythm Lungs clear to auscultate Abdomen soft nontender nondistended obese Musculoskeletal-edema at right wrist. Dressing on right wrist and right leg laboratory and microbiology Laboratory Tests 07/12/24 05:03 Test 07/12/24 05:03 Range/Units Serum Glucose 117 H 74-106 mg/dL Problems(with codes): (1) Elevated liver enzymes (2) Near syncope (3) Ankle fracture (4) Falling (5) Wrist fracture Prognosis Plan Monitor labs Social involved arranging and DME Patient was able to get up to bedside commode with the assistance today Plan discussed with: Patient LION COURTNEY MD July 12, 2024 21:13
[2024-07-13 05:00] VITALS: BP 137/67; PULSE 71; RESP 18; TEMP 98.7; O2SAT 98
[2024-07-13 06:08] LABS: Albumin 3.4 g/dL (3.2-4.8); Anion Gap 7 (5-15); BUN/Creatinine Ratio 27.1 (10.0-20.0); Blood Urea Nitrogen 13 mg/dL (9-23); Carbon Dioxide 30 mmol/L (20-31); Chloride 103 mmol/L (98-107); Potassium 4.4 mmol/L (3.5-5.1); Sodium 140 mmol/L (136-145); Total Protein 5.8 g/dL (5.7-8.2)
[2024-07-13 06:09] LABS: Bilirubin, Total 0.7 mg/dL (0.2-1.0)
[2024-07-13 06:12] LABS: Alanine Aminotransferase 123 U/L (7-40); Alkaline Phosphatase 121 U/L (46-116); Aspartate Aminotransferase 65 U/L (13-40); Calcium 8.4 mg/dL (8.7-10.4); Glucose 109 mg/dL (74-106)
[2024-07-13 06:23] LABS: Basophils # (auto) 0.1 10 ^3/uL (0-0.2); Basophils % (auto) 1.4 % (0.0-2.0); Eosinophils # (auto) 0.3 10 ^3/uL (0-0.8); Eosinophils % (auto) 4.5 % (0.0-7.0); Hematocrit 37.2 % (36.0-46.0); Hemoglobin 12.5 g/dL (12.2-16.2); Lymphocytes # (auto) 0.9 10 ^3/uL (0.4-5.4); Lymphocytes % (auto) 16.1 % (10.0-50.0); Mean Corpuscular Hemoglobin 29.6 pg (28.0-32.0); Mean Corpuscular Hgb Conc. 33.6 g/dL (32.0-36.0); Mean Corpuscular Volume 87.8 fL (80.0-100.0); Monocytes # (auto) 0.6 10 ^3/uL (0-1.3); Monocytes % (auto) 10.1 % (0.0-12.0); Neutrophils % (auto) 67.9 % (37.0-80.0); Platelet Count (auto) 248 10^3/uL (140-450); Red Blood Cells 4.24 10^6/uL (4.0-5.20); Red Cell Distribution Width 17.1 % (11.8-14.3); White Blood Cell 5.9 10^3/uL (4.4-10.8)
[2024-07-13 08:00] VITALS: PULSE 75; RESP 16; O2SAT 98
[2024-07-13] MEDS: DOCUSATE SOD 100 MG CAP PO PRN (08:52)
[2024-07-13 09:00] VITALS: BP 116/46; PULSE 63; RESP 16; TEMP 98.4; O2SAT 97
[2024-07-13 13:00] VITALS: BP 121/67; PULSE 89; RESP 16; TEMP 97; O2SAT 92
[2024-07-13] MEDS ORDERED: HYDR-4798 PO ×2 (13:39→13:42)
[2024-07-13] MEDS ORDERED: APIX2.5T PO (13:39)
[2024-07-13] MEDS ORDERED: NALO4SPR2 (13:39)
--- NOTE | 2024-07-13 13:51 | DVHDS2 ---
Discharge Summary Date of Admission July 09, 2024 at 14:06 Date of Discharge: July 13, 2024 Labs/Diagnostic Data: Laboratory Results Test 07/13/24 05:13 07/11/24 14:50 07/11/24 13:19 07/11/24 05:36 White Blood Count 5.9 10^3/uL (4.4-10.8) Red Blood Count 4.24 10^6/uL (4.0-5.20) Hemoglobin 12.5 g/dL (12.2-16.2) Hematocrit 37.2 % (36.0-46.0) Mean Corpuscular Volume 87.8 fL (80.0-100.0) Mean Corpuscular Hemoglobin 29.6 pg (28.0-32.0) Mean Corpuscular Hemoglobin Concent 33.6 g/dL (32.0-36.0) Red Cell Distribution Width 17.1 % (11.8-14.3) Platelet Count 248 10^3/uL (140-450) Mean Platelet Volume 9.5 fL (6.9-10.8) Neutrophils (%) (Auto) 67.9 % (37.0-80.0) Lymphocytes (%) (Auto) 16.1 % (10.0-50.0) Monocytes (%) (Auto) 10.1 % (0.0-12.0) Eosinophils (%) (Auto) 4.5 % (0.0-7.0) Basophils (%) (Auto) 1.4 % (0.0-2.0) Neutrophils # (Auto) 4.0 10 ^3/uL (1.6-8.6) Lymphocytes # (Auto) 0.9 10 ^3/uL (0.4-5.4) Monocytes # (Auto) 0.6 10 ^3/uL (0-1.3) Eosinophils # (Auto) 0.3 10 ^3/uL (0-0.8) Basophils # (Auto) 0.1 10 ^3/uL (0-0.2) Nucleated Red Blood Cells 1.0 % Sodium Level 140 mmol/L (136-145) Potassium Level 4.4 mmol/L (3.5-5.1) Chloride Level 103 mmol/L (98-107) Carbon Dioxide Level 30 mmol/L (20-31) Anion Gap 7 (5-15) Blood Urea Nitrogen 13 mg/dL (9-23) Creatinine 0.48 mg/dL (0.550-1.02) Glomerular Filtration Rate Calc 106 mL/min (>90) BUN/Creatinine Ratio 27.1 (10.0-20.0) Serum Glucose 109 mg/dL (74-106) Calcium Level 8.4 mg/dL (8.7-10.4) Total Bilirubin 0.7 mg/dL (0.2-1.0) Aspartate Amino Transferase (AST) 65 U/L (13-40) Alanine Aminotransferase (ALT) 123 U/L (7-40) Alkaline Phosphatase 121 U/L (46-116) Total Protein 5.8 g/dL (5.7-8.2) Albumin 3.4 g/dL (3.2-4.8) Iron Level 38 ug/dL (50-170) Total Iron Binding Capacity 275 ug/dL (250-425) Percent Iron Saturation 13.8 % (15-50) Triglycerides Level 116 mg/dL (< 150) Cholesterol Level 158 mg/dL (< 200) LDL Cholesterol 75 mg/dL (< 100) HDL Cholesterol 64 mg/dL (40-59) Lipase 44 U/L (12-53) Hepatitis A Antibody Total Positive (Negative) Hepatitis B Surface Antigen Negative (Negative) Hepatitis B Surface Antibody Negative (Negative) Hepatitis B Core Total Antibody Negative (Negative) Hepatitis C Antibody Negative (Negative) Test 07/10/24 05:49 07/09/24 20:07 07/09/24 12:40 07/09/24 11:37 Hepatitis A IgM Antibody Negative Hepatitis B Core IgM Antibody Negative (Negative) Prothrombin Time 10.3 sec (9.3-11.8) Prothrombin Time INR 0.97 (0.9-1.15) Troponin I High Sensitivity < 3 ng/L (</=34) Hemoglobin A1c 5.7 % A1C (<5.7) Other Laboratory Tests 07/13/24 05:13 Brief Hx & Hospital Course: 63-year-old female with a known history of hypothyroidism, dyslipidemia currently on statin presented to the hospital status post mechanical fall found to have right-sided bimalleolar ankle fracture status post mechanical fall as well as right upper extremity comminuted intra-articular distal radius fracture status post mechanical fall. Patient was eventually admitted started on pain meds DVT GI prophylaxis. Orthopedics was consulted patient underwent open reduction and internal fixation of of the right-sided bimalleolar ankle fracture as well as open reduction and internal fixation of the right distal radius fracture. Postoperatively patient did fairly well. Patient is currently stable to be discharged with close follow up as an outpatient with the Orthopedics. Patient was recommended nonweightbearing of the right upper extremity and right lower extremity. Also patient will be given Eliquis for DVT prophylaxis 2.5 b.i.d.. Risks benefits and alternatives of Eliquis including life-threatening bleeding disability explained to the patient in detail with the help of control and recovery special tactics as well as bedside RN. Patient is currently understand verbalized understanding and agreeable to plan. Patient is requesting wheelchair which will be arranged as well. Condition at Discharge: Stable Final Diagnosis/Problems List 63-year-old female with a known history of hypothyroidism, dyslipidemia currently on statin presented to the hospital status post mechanical fall found to have 1. Right-sided bimalleolar ankle fracture status post mechanical fall status post open reduction and internal fixation 2. Right upper extremity communicated intra-articular distal radius fracture status post mechanical fall status post open reduction and internal fixation 3. Transaminitis suspect secondary to atorvastatin Discharge Disposition: Still a Patient SNF Discharge Will this Physician continue t: No Discharge Instruct/Medications Diet: Cardiac 2g Na,low cholest Activity: See Comment Activity comment: No driving, no signing legal documents, no playing on heavy machinery while on narcotics. Nonweightbearing on right lower extremity and right upper extremity. Follow Up/Referral: Follow up with the PCP in one week Follow up with the Orthopedics Dr. Go Osorio in one week Medications: [place], Narcan, Eliquis as prescribed. Discharge Statement: "Patient was advised to return to the ER or call 911 if any headaches, dizziness, shortness of breath, chest pain, abdominal pain, bleeding, fevers, or worsening of medical condition. Patient was counseled about treatment plan, medications, possible side effects, patientverbalized understanding. All questions were answered to the best of my ability. This discharge took greater then 30 minutes in planning, reviewing documentation, counseling the patient, and discussing with other team members." ASSESSMENT ASSESSMENT Assessment 63-year-old female with a known history of hypothyroidism, dyslipidemia currently on statin presented to the hospital status post mechanical fall found to have 1. Right-sided bimalleolar ankle fracture status post mechanical fall status post open reduction and internal fixation 2. Right upper extremity communicated intra-articular distal radius fracture status post mechanical fall status post open reduction and internal fixation 3. Transaminitis suspect secondary to atorvastatin Date of Service: July 13, 2024 Billing Provider: MAINE URIOSTEGUI MD Common Visit Codes: [id number] DISCH DAY >30min MAINE URIOSTEGUI MD July 13, 2024 13:51
--- NOTE | 2024-07-13 14:26 | DVHPN2 ---
Progress Note - Dictate Date Seen: July 13, 2024 Medical Necessity Reason Pt with a Central, PICC or Fol: No Subjective No new complaints Liver enzymes trending down Liver ultrasound negative, previous cholecystectomy Hepatitis panel negative, NATACHA positive, iron profile normal POD # 2 S/P surgery on multiple fractures vital signs Vital Sign Date Time Temp Pulse Resp B/P (MAP) Pulse Ox O2 Delivery O2 Flow Rate FiO2 07/13/24 09:00 98.4 63 16 116/46 (69) 97 98.4 07/13/24 08:00 Nasal Cannula* 2 28 Total Intake and Output 07/12/24 07/12/24 07/13/24 15:00 23:00 07:00 Intake Total 510 ml 500 ml Balance 510 ml 500 ml medications Current Medications Medications Dose Ordered Sig/Esmer Route Start Time Stop Time Status Last Admin Dose Admin Sodium Chloride 10 ml Q8HR IV 07/09/24 22:00 07/13/24 05:26 10 ML Docusate Sodium 100 mg BIDPRN PRN PO 07/09/24 14:15 07/13/24 08:52 100 MG Acetaminophen 650 mg Q6HP PRN PO 07/09/24 14:15 07/11/24 16:25 650 MG Acetaminophen/ Hydrocodone Bitart 1 tab Q4HP PRN PO 07/09/24 14:15 07/13/24 13:57 1 TAB Hydromorphone HCl 0.5 mg Q4HP PRN IV 07/09/24 14:15 07/10/24 08:32 0.5 MG Ondansetron HCl 4 mg Q4HP PRN IV 07/09/24 14:15 Enoxaparin Sodium 40 mg DAILY SC 07/11/24 10:00 07/13/24 08:53 40 MG objective Generally 63 years old woman, overweight, obese laying in bed,no distress HEENT-atraumatic, normocephalic Heart-regular rate and rhythm Lungs clear to auscultate Abdomen soft nontender nondistended obese Musculoskeletal-edema at right wrist. Dressing on right wrist and right leg laboratory and microbiology Laboratory Tests 07/13/24 05:13 Test 07/13/24 05:13 Range/Units Serum Glucose 109 H 74-106 mg/dL Problems(with codes): (1) Elevated liver enzymes (2) Near syncope (3) Ankle fracture (4) Falling Prognosis Plan Discharge planning is in progress Patient will follow up with me as an outpatient so I can continue to monitor her labs and do any further workup for possible autoimmune hepatitis Follow up with her PCP to arrange a referral and to monitor positive NATACHA Dietary Evaluation Review Comments: Wt reducing diet Expected Outcomes/Goals: gradual wt loss and imprved body balance Plan discussed with: Patient, Other (Dr Hernández) LION COURTNEY MD July 13, 2024 14:26
[2024-07-13 16:52] VITALS: BP 106/61; PULSE 71; RESP 16; TEMP 97.1; O2SAT 98
--- NOTE | 2024-07-14 08:00 | ECG ---
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
== END 2024-07-13 18:40 | disposition home or self-care (01) | DRG 313 ==
LOC: EDBD 11:17 → ER 11:17 → OVERFLOW 14:06 → EAST 19:58
PROVIDERS: ADMIT Internal Medicine; ATTEND Internal Medicine
PROC: 2W3CX1Z Immobilization of Right Lower Arm using Splint (ICD-10-PCS; 2024-07-09)
PROC: 2W3RX1Z Immobilization of Left Lower Leg using Splint (ICD-10-PCS; 2024-07-09)
PROC: 0PSH04Z Reposition Right Radius with Internal Fixation Device, Open Approach (ICD-10-PCS; 2024-07-11)
PROC: 0QSJ04Z Reposition Right Fibula with Internal Fixation Device, Open Approach (ICD-10-PCS; principal; 2024-07-11 08:30)
DX: S82.841A Displaced bimalleolar fracture of right lower leg, initial encounter for closed fracture (principal); E11.9 Type 2 diabetes mellitus without complications; I10 Essential (primary) hypertension; R74.01 Elevation of levels of liver transaminase levels; S52.571A Other intraarticular fracture of lower end of right radius, initial encounter for closed fracture; Z83.3 Family history of diabetes mellitus; Z90.710 Acquired absence of both cervix and uterus; W18.39XA Other fall on same level, initial encounter; Y93.89 Activity, other specified; Y92.89 Other specified places as the place of occurrence of the external cause; Y99.8 Other external cause status; T46.6X5A Adverse effect of antihyperlipidemic and antiarteriosclerotic drugs, initial encounter
CPT/HCPCS: 36415; 70450; 71045; 72040; 73090; 73100; 73590; 73600; 73610; 76000; 76705; 80048; 80053; 80061; 80074; 83036; 83540; 83550; 83690; 84484; 85025; 85610; 86038; 86704; 86706; 86708; 86803; 87340; 93005; 93306; 93886; 96374; 97110; 97116; 97163; 99291; G0378; J1100; J1885; J2003; J2250; J2405; J2704; J3490